=== PATIENT | female | born 1975 | race Caucasian/White ===

== ENCOUNTER 2021-06-19 11:31 | Emergency (ER) | payer BC ==
[2021-06-19] MEDS ORDERED: Ventolin HFA Inhaler 60 PUFF INHALER ONE (12:38)
[2021-06-19] MEDS ORDERED: Acetaminophen W/ Codeine 5 ML UDCUP PO SCH (12:45)
[2021-06-19 14:08] LABS: SARS-CoV-2 NAA Rapid Test Not Detected (NotDetected)
[2021-06-19 15:28] LABS: #Monocytes 0.8 10x3/uL (0.0-1.1); #Neutrophils 4.9 10x3/uL (1.5-8.4); %Basophils 0.5 % (0.0-2.0); %Eosinophils 0.4 % (0.0-6.0); %Lymphocytes 28.7 % (18.0-47.0); %Monocytes 9.6 % (0.0-10.0); %Neutrophils 60.6 % (40.0-75.0); Hemoglobin 13.1 g/dL (12.0-15.5); Mean Corpuscular HGB CONC 33.6 g/dL (32.0-36.0); Mean Corpuscular Hemoglobin 31.4 pg (27.0-33.0); Mean Corpuscular Volume 93.5 fl (81.6-98.3); Mean Platelet Volume 9.1 fl (7.4-10.4); Platelet Count 294 10x3/uL (150-450); RBC Distribution Width 12.2 % (11.5-14.5); Red Blood Cell (RBC) Count 4.17 10x6/uL (3.90-5.03); White Blood Cell (WBC) Count 8.2 10x3/uL (3.5-10.5)
[2021-06-19 15:46] LABS: ALT (SGPT) 42 U/L (8-55); AST (SGOT) 39 U/L (5-34); Albumin 4.3 g/dL (3.5-5.0); Alkaline Phosphatase 104 U/L (40-110); Anion Gap 14 mmol/L (10-20); BUN (Urea Nitrogen) 10 mg/dL (7.0-18.7); Bilirubin, Total 0.7 mg/dL (0.2-1.2); Calc. Creatinine Clearance 0 mL/min (70-130); Calcium 9.7 mg/dL (7.8-10.44); Carbon Dioxide 25 mmol/L (22-29); Chloride 104 mmol/L (98-107); Globulin 3.7 g/dL (2.4-3.5); Glucose 96 mg/dL (70-105); Potassium 3.9 mmol/L (3.5-5.1); Sodium 139 mmol/L (136-145)
[2021-06-19] MEDS ORDERED: methylPREDNISolone Sod Succ/PF 125 MG/2 ML VIAL ONE (16:11)
== END 2021-06-19 17:30 | disposition home or self-care (01) ==
LOC: CSHERS 11:31
DX: J20.9 Acute bronchitis, unspecified (principal); E86.0 Dehydration; Z20.822 Contact with and (suspected) exposure to COVID-19
CPT/HCPCS: 0240U; 36415; 71045; 80053; 83880; 84484; 85025; 85379; 93005; 94760; 96374; J2930

== ENCOUNTER 2023-06-24 12:36 | Emergency (ER) | payer BC ==
[2023-06-24] MEDS ORDERED: Morphine 4 MG/ML VIAL ONE ×2 (13:02→14:43)
[2023-06-24] MEDS ORDERED: Ondansetron PF 4 MG/2 ML Vial ONE ×2 (13:03→16:02)
[2023-06-24] MEDS ORDERED: Ketorolac Tromethamine 30 MG/ML VIAL ONE (13:03)
[2023-06-24 13:38] LABS: #Eosinphils 0.1 10x3/uL (0.0-0.5); #Monocytes 0.4 10x3/uL (0.0-1.1); %Basophils 0.3 % (0.0-2.0); %Eosinophils 0.4 % (0.0-6.0); %Lymphocytes 16.5 % (18.0-47.0); %Monocytes 3.8 % (0.0-10.0); %Neutrophils 78.6 % (40.0-75.0); Hematocrit 40.1 % (34.9-44.5); Hemoglobin 13.7 g/dL (12.0-15.5); Mean Corpuscular HGB CONC 34.2 g/dL (32.0-36.0); Mean Corpuscular Hemoglobin 31.6 pg (27.0-33.0); Mean Corpuscular Volume 92.6 fl (81.6-98.3); Mean Platelet Volume 9.3 fl (7.4-10.4); Platelet Count 337 10x3/uL (150-450); Red Blood Cell (RBC) Count 4.33 10x6/uL (3.90-5.03); White Blood Cell (WBC) Count 11.5 10x3/uL (3.5-10.5)
[2023-06-24 13:45] LABS: ALT (SGPT) 23 U/L (8-55); AST (SGOT) 21 U/L (5-34); Albumin 4.4 g/dL (3.5-5.0); Alkaline Phosphatase 92 U/L (40-110); Anion Gap 14 mmol/L (10-20); BUN (Urea Nitrogen) 9 mg/dL (7.0-18.7); Bilirubin, Total 0.6 mg/dL (0.2-1.2); Calc. Creatinine Clearance 0 mL/min (70-130); Calcium 9.3 mg/dL (7.8-10.44); Carbon Dioxide 23 mmol/L (22-29); Chloride 108 mmol/L (98-107); Estimated GFR 112; Globulin 3.7 g/dL (2.4-3.5); Glucose 131 mg/dL (70-105); Lipase 10 U/L (8-78); Potassium 3.7 mmol/L (3.5-5.1); Protein, Total 8.1 g/dL (6.0-8.3); Sodium 141 mmol/L (136-145)
== END 2023-06-24 16:05 | disposition home or self-care (01) ==
LOC: CSHERS 12:36
DX: K80.20 Calculus of gallbladder without cholecystitis without obstruction (principal)
CPT/HCPCS: 76705; 80053; 83690; 85025; 96374; 96375; 96376; J1885; J2270; J2405

== ENCOUNTER 2023-06-26 12:15 | Observation (INO) | payer BC ==
[2023-06-26 13:42] LABS: #Basophils 0.1 10x3/uL (0.0-0.2); #Eosinphils 0.1 10x3/uL (0.0-0.5); #Monocytes 0.7 10x3/uL (0.0-1.1); #Neutrophils 6.7 10x3/uL (1.5-8.4); %Basophils 0.5 % (0.0-2.0); %Eosinophils 1.3 % (0.0-6.0); %Lymphocytes 23.4 % (18.0-47.0); %Monocytes 6.9 % (0.0-10.0); %Neutrophils 67.7 % (40.0-75.0); Hematocrit 39.4 % (34.9-44.5); Hemoglobin 13.4 g/dL (12.0-15.5); Mean Corpuscular Hemoglobin 31.7 pg (27.0-33.0); Mean Corpuscular Volume 93.1 fl (81.6-98.3); Mean Platelet Volume 9.2 fl (7.4-10.4); Platelet Count 323 10x3/uL (150-450); RBC Distribution Width 12.2 % (11.5-14.5); Red Blood Cell (RBC) Count 4.23 10x6/uL (3.90-5.03); White Blood Cell (WBC) Count 9.9 10x3/uL (3.5-10.5)
[2023-06-26 13:51] LABS: ALT (SGPT) 33 U/L (8-55); AST (SGOT) 36 U/L (5-34); Albumin 4.1 g/dL (3.5-5.0); Alkaline Phosphatase 123 U/L (40-110); Anion Gap 15 mmol/L (10-20); BUN (Urea Nitrogen) 6 mg/dL (7.0-18.7); Bilirubin, Total 1.2 mg/dL (0.2-1.2); Calc. Creatinine Clearance 0 mL/min (70-130); Calcium 9.4 mg/dL (7.8-10.44); Carbon Dioxide 25 mmol/L (22-29); Chloride 101 mmol/L (98-107); Estimated GFR 111; Globulin 3.9 g/dL (2.4-3.5); Glucose 116 mg/dL (70-105); Lipase 11 U/L (8-78); Potassium 3.7 mmol/L (3.5-5.1); Sodium 137 mmol/L (136-145)
[2023-06-26] MEDS ORDERED: Morphine 4 MG/ML VIAL ONE ×2 (13:59→15:12)
[2023-06-26] MEDS ORDERED: Ondansetron PF 4 MG/2 ML Vial ONE ×3 (13:59→15:33)
[2023-06-26 15:06] LABS: BHCG - Serum Negative (NEGATIVE); Pregs Control Background? CLEAR/WHITE (CLR/WHITE); Pregs Control Bar Appear? YES (CONTROL BAR)
[2023-06-26] MEDS ORDERED: Piperacillin/Tazobactam 3.375 GM VIAL ONE (15:12)
[2023-06-26] MEDS ORDERED: fentaNYL 50 mcg/mL 1 mL Vial ONE (15:32)
[2023-06-26] MEDS ORDERED: Midazolam HCl 2 mg/2 ml Vial ONE (15:32)
[2023-06-26] MEDS ORDERED: PROPOFOL 20 ML ONE (15:32)
[2023-06-26] MEDS ORDERED: Dexamethasone 20 MG/5 ML VIAL ONE (15:33)
[2023-06-26] MEDS ORDERED: Rocuronium Bromide 10 MG/ML (10ML VIAL) ONE (15:33)
[2023-06-26] MEDS ORDERED: Lidocaine 1% PF 5 ML VIAL ONE (15:33)
[2023-06-26] MEDS ORDERED: Bupivacaine PF 0.5% 30 ML VIAL ONE (15:42)
[2023-06-26] MEDS ORDERED: SUGAMMADEX SODIUM 200 MG/2 ML VIAL ONE (16:00)
[2023-06-26] MEDS ORDERED: Succinylcholine 200 MG/10 ml SYRINGE FS ONE (16:03)
[2023-06-26] MEDS ORDERED: Bupivacaine HCl 0.5%/Epinephrine 1:200,000/PF 30 ml Vial ONE (16:46)
[2023-06-26] MEDS ORDERED: Acetaminophen 325 MG TAB PO PRN (17:08)
[2023-06-26] MEDS ORDERED: Ondansetron PF 4 MG/2 ML Vial IVP PRN (17:08)
[2023-06-26] MEDS ORDERED: HYDROcodone/Acetaminophen 10/325 mg Tablet PO PRN ×2 (17:08)
[2023-06-26] MEDS ORDERED: Ipratropium/Albuterol 3 ML NEB NEB PRN (17:08)
[2023-06-26] MEDS ORDERED: Promethazine HCl 25 MG/ML VIAL IM PRN (17:08)
[2023-06-26] MEDS ORDERED: Calcium Carbonate 500 MG ChewTAB PO PRN (17:08)
[2023-06-26] MEDS ORDERED: Mag-Al 1200 mg/1200 mg/30 ML UDCUP PO PRN (17:08)
[2023-06-26] MEDS ORDERED: Morphine 4 MG/ML VIAL SLOW IVP PRN (17:08)
[2023-06-26] MEDS ORDERED: hydrALAZINE 20 MG/ML VIAL SLOW IVP PRN (17:08)
[2023-06-26] MEDS ORDERED: Ketorolac Tromethamine 30 MG/ML VIAL ONE (17:33)
[2023-06-26] MEDS: Lactated Ringer's 1,000 ML IV SCH ×2 (18:00→23:50)
[2023-06-26 18:41] VITALS: BMI 41.1
[2023-06-26] MEDS: Ketorolac Tromethamine 30 MG/ML VIAL IVP SCH ×2 (19:42→23:44)
[2023-06-26] MEDS: Morphine 2 MG/ML VIAL SLOW IVP PRN (20:27)
[2023-06-26] MEDS: Piperacillin/Tazobactam 3.375 GM in Sodium Chloride 0.9% 100 ML IVPB SCH (20:31)
[2023-06-26] MEDS: Famotidine 20 MG TAB PO SCH (20:31)
[2023-06-27] MEDS: Piperacillin/Tazobactam 3.375 GM in Sodium Chloride 0.9% 100 ML IVPB SCH ×2 (03:53→10:47)
[2023-06-27] MEDS: Morphine 2 MG/ML VIAL SLOW IVP PRN (04:27)
[2023-06-27] MEDS: Ketorolac Tromethamine 30 MG/ML VIAL IVP SCH ×2 (06:47→10:47)
[2023-06-27 07:13] VITALS: BP 138/84; TEMP 97.7
[2023-06-27] MEDS: Famotidine 20 MG TAB PO SCH (08:23)
[2023-06-27] MEDS: Lactated Ringer's 1,000 ML IV SCH (09:07)
== END 2023-06-27 12:29 | disposition home or self-care (01) ==
LOC: CSHERS 12:15 → CSHTELE 17:08
PROVIDERS: ADMIT Surgery; ATTEND Surgery
PROC: 0FT44ZZ Resection of Gallbladder, Percutaneous Endoscopic Approach (ICD-10-PCS; principal; 2023-06-26)
DX: K80.12 Calculus of gallbladder with acute and chronic cholecystitis without obstruction (principal); E66.9 Obesity, unspecified; Z68.41 Body mass index [BMI] 40.0-44.9, adult; Z98.890 Other specified postprocedural states; Z79.899 Other long term (current) drug therapy
CPT/HCPCS: 36415; 76705; 80053; 83605; 83690; 84703; 85025; 87040; 88304; 93005; 96365; 96375; 96376; C1889; J1100; J1650; J1885; J2250; J2270; J2272; J2405; J2543; J2704; J3010; J3490; J7120; S0020

== ENCOUNTER 2025-07-19 13:58 | Outpatient (CLI) | payer BC | END 2025-07-19 13:59 | disposition home or self-care (01) | LOC: CSHMRI 13:58 | PROVIDERS: ATTEND Podiatrist | DX: S86.011A Strain of right Achilles tendon, initial encounter (principal); M71.571 Other bursitis, not elsewhere classified, right ankle and foot; M77.31 Calcaneal spur, right foot; M67.961 Unspecified disorder of synovium and tendon, right lower leg ==